=== PATIENT | female | born 1930 | race Caucasian/White ===

== ENCOUNTER 2020-01-01 07:38 | Observation (INO) ==
[2020-01-01] MEDS ORDERED: IOPAMIDOL 100 ML BOTTLE IV ONE (07:39)
[2020-01-01] MEDS ORDERED: 0.9 % SODIUM CHLORIDE 1,000 ML IV ONE (07:44)
[2020-01-01] MEDS ORDERED: ONDANSETRON 4 MG/2 ML VIAL IV ONE ×2 (07:44→09:19)
--- NOTE | 2020-01-01 08:09 | Emergency Department Note ---
HPI General Chief complaint: Trauma Stated complaint: trauma Time Seen by Provider: 01/01/20 07:41 Source: patient Mode of arrival: ambulatory Limitations: no limitations History of Present Illness HPI Narrative: Narrative: I was called for this multisystem trauma code by nursing staff. I arrived while EMS was loading her onto a gurney 89-year-old female tripped in her yard this morning hitting her face-she fell over some blocks in her patio accidentally. she did not lose consciousness but she is on Plavix. She was calling out for help and her neighbors called EMS. Her left eye is swollen shut and there is a large hematoma on her cheek now. She is having trouble opening her jaws as well. Her head and neck hurt. Her left arm hurts including her shoulder and elbow. Her right knee hurts as well. Denies shortness of breath or recent illness. Afebrile Related Data Home Medications Medication Instructions Recorded Confirmed albuterol sulfate [Proair 90 mcg IH QIDP PRN 12/21/17 12/21/17 Respiclick] amlodipine 2.5 mg PO DAILY 12/21/17 12/21/17 aspirin [Aruna Chewable Aspirin] 81 mg PO DAILY 12/21/17 12/21/17 carvedilol [Coreg] 6.25 mg PO BID 12/21/17 12/21/17 clopidogrel [Plavix] 75 mg PO DAILY 12/21/17 12/21/17 gabapentin 900 mg PO DAILY 12/21/17 12/21/17 levothyroxine 75 mcg PO DAILY 12/21/17 12/21/17 losartan 25 mg PO DAILY 12/21/17 12/21/17 Previous Rx's Medication Instructions Recorded cephalexin 500 mg PO BID #14 cap 12/21/17 phenazopyridine 100 mg PO Q12 PRN #10 tab 12/21/17 Allergies Allergy/AdvReac Type Severity Reaction Status Date / Time JOHNATHAN Inhibitors Allergy Verified 01/01/20 07:42 alendronate sodium Allergy Verified 01/01/20 07:42 [From Fosamax] atenolol Allergy Verified 01/01/20 07:42 atorvastatin [From Lipitor] Allergy Verified 01/01/20 07:42 Candesartan [From Atacand] Allergy Verified 01/01/20 07:42 chlorhexidine Allergy Verified 01/01/20 07:42 fish derived Allergy Swelling Verified 01/01/20 07:43 of Lip/Tongue/Throat lansoprazole [From Prevacid] Allergy Verified 01/01/20 07:42 lisinopril Allergy Verified 01/01/20 07:42 lovastatin Allergy Verified 01/01/20 07:42 meperidine [From Demerol] Allergy Verified 01/01/20 07:42 metoprolol [From Toprol XL] Allergy Verified 01/01/20 07:42 niacin Allergy Verified 01/01/20 07:42 rosuvastatin [From Crestor] Allergy Verified 01/01/20 07:42 Sulfa (Sulfonamide Allergy Verified 01/01/20 07:42 Antibiotics) Review of Systems ROS ROS Narrative: Narrative: All systems ED: reviewed and negative except as stated. [facility] Narrative Patient History Narrative: Narrative: Medical/Surgical/Family History All Active Problems (Updated 01/01/20 @ 08:15 by Alexandr Roberto MD) Fall (Acute) Antiplatelet or antithrombotic long-term use (Acute) Traumatic hematoma of face (Acute) Coronary artery disease (Acute) Hypertension (Acute) Hypothyroidism (Acute) Urinary tract infection (Acute) Surgical History (Updated 01/01/20 @ 08:47 by Alexandr Roberto MD) History of appendectomy (Acute) History of hysterectomy (Acute) History of percutaneous transluminal coronary angioplasty (Acute) Hx of CABG (Acute) Social History Smoking Status: Never smoker Exam Narrative Narrative: Primary survey shows intact airway breathing circulation. I do not see any significant hemorrhage besides the hematoma at her left cheek Secondary survey shows : left face shows large hematoma approximately 5 cm at the zygomatic process. She is having trouble opening her jaw because of this. However she can talk it just hurts. Left eye is swollen shut. I was able to pry open her I did take a look at the conjunctiva and pupil and that appears normal. Right eye has normal pupil and conjunctiva. Extraocular movements are intact. Heart is regular rate and rhythm no murmur appreciated. Lungs are clear to auscultation bilaterally without wheezes rales rhonchi or respiratory distress. I did palpate her left arm shoulder elbow and wrist. Her shoulder is the tenderest. She is holding it close to her body with the right hand. Abdomen is soft nontender nondistended. Right knee has tenderness over the patella as well. No pedal edema. She is alert General Limitations: no limitations Course Vital Signs Vital signs: Vital Signs Temperature 97.6 F 01/01/20 07:38 Pulse Rate 70 01/01/20 07:38 Respiratory Rate 18 01/01/20 07:38 Blood Pressure 216/76 01/01/20 07:38 Pulse Oximetry (%) 97 01/01/20 07:38 Temperature 97.6 F 01/01/20 07:38 Pulse Rate 70 01/01/20 07:38 Respiratory Rate 18 01/01/20 07:38 Blood Pressure 216/76 01/01/20 07:38 Pulse Oximetry (%) 97 01/01/20 07:38 MDM MDM Narrative Medical decision making narrative: Ordered CT scan of the head face and neck. X-rays ordered of the left shoulder elbow wrist and the right knee. Routine labs along with some IV fluids ordered. EKG and monitoring CT scan of the head neck does show degenerative changes/chronic changes. CT scan of the face however shows left orbital floor blowout fracture and zygomatic fracture She was given some Dilaudid for pain. EKG is pending as are labs. Case will be turned over to Dr. Lopez at shift change for further care and evaluation, disposition Radiology Data Radiology results reviewed: Yes I reviewed the patient's radiology results. Radiology results narrative: CT scan of the cervical spine only revealed degenerative changes. 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 However this is chronic and stable CT scan of the facial bones shows zygomatic fracture and orbital floor blowout fracture with possible entrapment of the inferior rectus muscle Discharge Plan Patient/Caregiver Discharge Instructions Pt seen by INFANT NANNY/PA only: No Clinical Impression: Antiplatelet or antithrombotic long-term use Fall Qualifiers: Encounter type: initial encounter Qualified Code(s): W19.XXXA - Unspecified fall, initial encounter Traumatic hematoma of face Qualifiers: Encounter type: initial encounter Qualified Code(s): S00.83XA - Contusion of other part of head, initial encounter Patient Disposition: Still a Patient Condition: Fair Follow up with: Chris Galvez MD [Primary Care Provider] - Prescriptions: No Action carvedilol [Coreg] 6.25 MG Tablet 6.25 mg PO BID RF: 0 clopidogrel [Plavix] 75 MG Tablet 75 mg PO DAILY RF: 0 amlodipine 5 MG Tablet 2.5 mg PO DAILY RF: 0 levothyroxine 75 MCG Tablet 75 mcg PO DAILY RF: 0 losartan 25 MG Tablet 25 mg PO DAILY RF: 0 gabapentin 300 MG Capsule 900 mg PO DAILY RF: 0 aspirin [Aruna Chewable Aspirin] 81 MG Tab.Chew 81 mg PO DAILY RF: 0 albuterol sulfate [ProAir RespiClick] 90 MCG Aer.Pow.Ba 90 mcg IH QIDP PRN (Reason: Bronchodilation) RF: 0 cephalexin 500 MG capsule 500 mg PO BID Qty: 14 RF: 0 phenazopyridine 100 MG tablet 100 mg PO Q12 PRN (Reason: Pain) Qty: 10 RF: 0
--- NOTE | 2020-01-01 08:25 | Cat Scan Report ---
INDICATION: fall COMPARISON: Previous examination dated 11/04/2019 TECHNIQUE: Axial noncontrast-enhanced images through the brain. Sagittally and coronally reformatted images. FINDINGS: Cerebral hemispheres:Negative. No intra-axial abnormality. No intra-axial hematoma. No localized mass effect. Brain volume is within normal limits. No hydrocephalus. There is white matter abnormality consistent with small vessel ischemic change in this 89-year-old patient Brainstem and cerebellum:No intra-axial abnormality Extra-axial:No acute hemorrhage. No subdural or epidural hematoma. No subarachnoid hemorrhage. Basilar cisterns are normal Calvarial:No calvarial fracture. No lytic lesion. No temporal bone fracture There is a large osseous abnormality involving the right parietal bone, greater wing of the sphenoid bone, and squamosal portion of the right temporal bone. This is exophytic and sclerotic with nonossified center. This is unchanged since 11/04/2019. There is no chondroid matrix. Appearance is not consistent with malignancy. 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 Stable since previous examination. There is abnormality involving the greater wing of the left sphenoid bone and squamosal portion of the temporal bone consistent with fibrous dysplasia or Paget's disease. Soft tissue, orbits, sinuses:There is soft tissue abnormality and there are fractures. These will be described in a separate dictation IMPRESSION: 1. No acute intracranial abnormality. Facial bone fractures will be described in a separate dictation. 2. 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 Findings are unchanged since 11/04/2019 The exam was performed using radiation dose optimization techniques including, but not limited to, automated exposure control, adjustment of the mA and/or kV according to patient size and use of iterative reconstruction technique. Interpreted and Authenticated by: Mumtaz Cervantes 01/01/20
--- NOTE | 2020-01-01 08:29 | Cat Scan Report ---
INDICATION: fall. on plavix COMPARISON: None. TECHNIQUE: Axial thin section images through the cervical spine. Sagittally and coronally reformatted images. The exam was performed using radiation dose optimization techniques including, but not limited to, automated exposure control, adjustment of the mA and/or kV according to patient size and use of iterative reconstruction technique. FINDINGS: Vertebral bodies, spinous processes:No vertebral body or spinous process fracture. No acute abnormality. Alignment is anatomic without anterolisthesis Normal odontoid process. No fracture. Occipital condyles and C1 are negative. No atlantoaxial subluxation. Facets:Multilevel degenerative facet arthropathy Disc spaces:Mild degenerative disc narrowing at C3-4, C4-5, C6-7. Moderate to severe degenerative disc disease at C5-6 Temporal bones:Negative. No basilar skull fracture Cervical soft tissues:Negative. No prevertebral soft tissue swelling. No focal soft tissue mass or acute abnormality. There is calcified atherosclerotic plaque distal common carotid arteries and proximal internal carotid arteries. Lung apices:No pneumothorax. No pulmonary contusion. IMPRESSION: 1. Degenerative disc disease and facet arthropathy 2. No cervical spine fracture Interpreted and Authenticated by: Mumtaz Cervantes 01/01/20
--- NOTE | 2020-01-01 08:37 | Cat Scan Report ---
INDICATION: fall. on plavix TECHNIQUE: Axial images through the facial bones. Sagittal and coronal reformatted images. COMPARISON: None. FINDINGS: Nasal bones:Negative. No fracture Orbits, zygoma, maxilla: Fracture of the left zygomatic arch. Fractures of the left inferior orbital rim and orbital floor. Lateral wall of the left maxillary sinus is fractured. Subtle fracture of the anterior wall of the left maxillary sinus. Findings are consistent with zygomaticomaxillary complex fracture. There is hemorrhage within the left maxillary sinus. There is extensive periorbital soft tissue swelling and soft tissue gas. There is left intraorbital gas. This is extraconal. Lamina papyracea is normal without medial blowout fracture. There is possible entrapment of the left inferior rectus muscle. There is left proptosis. The globe appears intact without evidence of disruption. Mandible:No mandibular fracture. The condyles are intact and in normal position with respect to the temporomandibular fossae Skull base:Negative temporal bones. Mastoid sinuses are negative. Middle ears are clear. No basilar skull fracture. There is osseous abnormality of the temporal and sphenoid bones consistent with fibrous dysplasia or Paget's disease. No acute posttraumatic abnormality Facial soft tissues: Extensive left periorbital soft tissue swelling and soft tissue gas. No prevertebral soft tissue swelling. Right-sided soft tissues are negative. Nasopharynx, oropharynx, hypopharynx are negative IMPRESSION: 1. Extensive left periorbital soft tissue swelling and soft tissue gas 2. Left proptosis. Left globe appears normal 3. Severe left ZMC fracture 4. Left orbital floor fracture with possible entrapment of the inferior rectus muscle The exam was performed using radiation dose optimization techniques including, but not limited to, automated exposure control, adjustment of the mA and/or kV according to patient size and use of iterative reconstruction technique. Interpreted and Authenticated by: Mumtaz Cervantes 01/01/20
[2020-01-01] MEDS ORDERED: HYDROmorphone 0.5 MG/0.5 ML SYRINGE IV PRN (08:45)
--- NOTE | 2020-01-01 08:52 | XRay Report ---
INDICATION: fall TECHNIQUE: AP internal and external rotation, Y view COMPARISON: None. FINDINGS: No left shoulder fracture. No glenohumeral dislocation. Scapula and clavicle are negative. Humeral head is normal. IMPRESSION: Negative left shoulder Interpreted and Authenticated by: Mumtaz Cervantes 01/01/20
--- NOTE | 2020-01-01 08:53 | XRay Report ---
INDICATION: fall TECHNIQUE: AP, oblique, lateral views COMPARISON: Previous examination dated 02/05/2018 FINDINGS: Skeletal: Negative. Distal femur, proximal tibia, proximal fibula are negative. No fracture. No significant osteochondral lesion. Joint spaces: Mild degenerative joint disease in the right patellofemoral joint. Medial and lateral femoral tibial joint spaces are within normal limits Suprapatellar recess, periarticular soft tissues: No detectable joint effusion. No periarticular soft tissue abnormality IMPRESSION: Negative right knee. No right knee fracture Interpreted and Authenticated by: Mumtaz Cervantes 01/01/20
--- NOTE | 2020-01-01 08:54 | XRay Report ---
INDICATION: fall. on plavix TECHNIQUE: AP and lateral left elbow COMPARISON: None. FINDINGS: Negative left elbow. No fracture. No plain film evidence for hemarthrosis. No soft tissue gas or radiopaque foreign body IMPRESSION: Negative left elbow Interpreted and Authenticated by: Mumtaz Cervantes 01/01/20
--- NOTE | 2020-01-01 08:55 | XRay Report ---
INDICATION: fall TECHNIQUE: AP and lateral left wrist COMPARISON: None. FINDINGS: Comminuted intra-articular distal left radial fracture. There is significant impaction displacement. There is slight dorsal angulation. Associated fracture of the ulnar styloid process. IMPRESSION: 1. Comminuted intra-articular distal left radial fracture with impaction and slight dorsal angulation 2. Ulnar styloid fracture Interpreted and Authenticated by: Mumtaz Cervantes 01/01/20
[2020-01-01 09:05] LABS: POC Blood Urea Nitrogen 8 mg/dl (8-23); POC CO2 25 mmol/L (22-30); POC Calcium, Ionized 1.03 mmol/L (1.16-1.32); POC Chloride 98 mmol/L (96-108); POC Creatinine 0.7 mg/dl (0.6-1.1); POC Glucose, Random 99 mg/dL (70-105); POC Potassium 3.7 mmol/L (3.3-5.1); POC Sodium 134 mmol/L (133-145)
[2020-01-01] MEDS ORDERED: ONDANSETRON 4 MG/2 ML VIAL ONE (09:21)
[2020-01-01] MEDS ORDERED: PROMETHAZINE 25 MG/ML VIAL IV ONE (09:43)
[2020-01-01 09:47] LABS: Basophils # (Auto) 0.05 K/mcL (0.00-0.30); Basophils % (Auto) 0.6 % (0.0-2.0); Eosinophils # (Auto) 0.23 K/mcL (0.00-0.70); Eosinophils % (Auto) 2.6 % (0.0-7.0); Granulocytes % (Auto) 65.6 % (38.0-78.0); Hematocrit 42.1 % (34.1-44.9); Hemoglobin 13.9 g/dL (11.2-15.7); Lymphocytes # (Auto) 1.59 K/mcL (1.50-4.80); Lymphocytes % (Auto) 17.9 % (15.5-49.0); Mean Cell Volume 82.5 fL (80.0-100.0); Mean Platelet Volume 9.1 fL (7.4-10.4); Monocytes # (Auto) 1.18 K/mcL (0.10-0.90); Monocytes % (Auto) 13.3 % (1.0-12.0); Platelet Count 288 K/mcL (140-440); Red Cell Distribution Width 14.1 % (11.5-14.5); WBC 8.9 K/mcL (4.50-11.00)
--- NOTE | 2020-01-01 09:51 | Emergency Department Note ---
HPI General Chief complaint: Trauma Stated complaint: trauma Time Seen by Provider: 01/01/20 07:41 Source: patient Mode of arrival: ambulatory Limitations: no limitations History of Present Illness HPI Narrative: Narrative: 89-year-old female tripped in her yard hitting her face-she fell over some blocks in her patio accidentally. Mechanism of injury was ground-level mechanical. Time of injury was earlier this morning. Patient currently reporting injuries to the left eye,cheek, jaw, head and neck, left arm shoulder and elbow, right knee hurts as well. . Patient is currently on blood thinners. There was not loss of consciousness. Patient's past medical history is significant for pretension, coronary artery disease, anticoagulation. Patient last ate at dinner last night. Patient with allergies to see extensive list, anticoagulated on Plavix. She was calling out for help and her neighbors called EMS. Related Data Home Medications Medication Instructions Recorded Confirmed amlodipine 2.5 mg PO DAILY 12/21/17 12/21/17 carvedilol [Coreg] 6.25 mg PO BID 12/21/17 12/21/17 clopidogrel [Plavix] 75 mg PO DAILY 12/21/17 12/21/17 gabapentin 900 mg PO DAILY 12/21/17 12/21/17 levothyroxine 75 mcg PO DAILY 12/21/17 12/21/17 losartan 25 mg PO DAILY 12/21/17 12/21/17 albuterol sulfate [Ventolin HFA] 2 puff INHALATION Q4H 01/01/20 01/01/20 hydroxyzine HCl 25 mg PO QHS 01/01/20 01/01/20 prednisone 5 mg PO BID 01/01/20 01/01/20 Allergies Allergy/AdvReac Type Severity Reaction Status Date / Time JOHNATHAN Inhibitors Allergy Verified 01/01/20 07:42 alendronate sodium Allergy Verified 01/01/20 07:42 [From Fosamax] atenolol Allergy Verified 01/01/20 07:42 atorvastatin [From Lipitor] Allergy Verified 01/01/20 07:42 Candesartan [From Atacand] Allergy Verified 01/01/20 07:42 chlorhexidine Allergy Verified 01/01/20 07:42 fish derived Allergy Swelling Verified 01/01/20 07:43 of Lip/Tongue/Throat lansoprazole [From Prevacid] Allergy Verified 01/01/20 07:42 lisinopril Allergy Verified 01/01/20 07:42 lovastatin Allergy Verified 01/01/20 07:42 meperidine [From Demerol] Allergy Verified 01/01/20 07:42 metoprolol [From Toprol XL] Allergy Verified 01/01/20 07:42 niacin Allergy Verified 01/01/20 07:42 rosuvastatin [From Crestor] Allergy Verified 01/01/20 07:42 Sulfa (Sulfonamide Allergy Verified 01/01/20 07:42 Antibiotics) Review of Systems ROS ROS Narrative: Narrative: All systems ED: reviewed and negative except as stated. [facility] Narrative Patient History Narrative: Narrative: Medical/Surgical/Family History All Active Problems (Updated 01/01/20 @ 15:24 by Clayton Lopez MD) Fracture of wrist (Acute) Zygomatic fracture, left side, initial encounter for closed fracture (Acute) Orbital floor (blow-out) closed fracture (Acute) Fall (Acute) Antiplatelet or antithrombotic long-term use (Acute) Traumatic hematoma of face (Acute) Coronary artery disease (Acute) Hypertension (Acute) Hypothyroidism (Acute) Urinary tract infection (Acute) Surgical History (Updated 01/01/20 @ 08:47 by Alexandr Roberto MD) History of appendectomy (Acute) History of hysterectomy (Acute) History of percutaneous transluminal coronary angioplasty (Acute) Hx of CABG (Acute) Social History Smoking Status: Never smoker Exam Narrative Narrative: Narrative: Primary survey: Airway: Patient without visible external evidence of airway compromise patient with trauma to the orbit as well as difficulty with jaw mobility Breathing: pt with spontaneous respirations, with excellent oxygenation on initial evaluation Circulation: Patient without obvious external hemorrhage in need of acute control, patient is perfusing extremities well without evidence of shock Disability: Basic neurological examination reveals moving all extremities, mentating appropriately; GCS 15 Secondary survey: General: Alert, interactive, appropriate Head: significant oral maxillofacial trauma Eyes: Left eye with significant edema swelling unable to open her unable to mobilize her eye to visualize and see what is going on inside of there, right eye with extraocular movements intact, sclera anicteric, no conjunctival injection Ears: Pinnae normal, no discharge Mouth: Oral mucosa moist, no acute swelling or evidence of infection Nares: No nasal discharge, patent bilaterally Neck: Trachea midline, full range of motion Chest: Symmetrical chest wall rise, clear to auscultation bilateral without wheezes rales crackles or rubs Cardiovascular: Patient with excellent perfusion to the extremities, regular rate and rhythm without M/R/G; patient is not tachycardic or hypotensive when I assumed care Abdomen: Nontender nondistended normoactive bowel sounds no masses no hepatosple nomegaly no rebound no guarding Skin: Patient without area of erythema, patient is without rash, no ascending lymphangitis or lymphadenopathy Extremities: Painful range of motion especially at the left shoulder elbow, on my evaluation patient is reporting some left hip pain, patient intact neurovas cularly to all extremities moving all extremities without abnormality Neuro: Alert, oriented x3, cranial nerves II through XII grossly intact, patient without lateralizing findings such as weakness, or abnormal reflexes Psychiatric: Normal affect, normal mood General Limitations: no limitations Course Vital Signs Vital signs: Vital Signs Temperature 97.6 F 01/01/20 07:38 Pulse Rate 70 01/01/20 07:38 Respiratory Rate 18 01/01/20 07:38 Blood Pressure 216/76 01/01/20 07:38 Pulse Oximetry (%) 97 01/01/20 07:38 Temperature 97.6 F 01/01/20 14:57 Pulse Rate 73 01/01/20 14:57 Respiratory Rate 16 01/01/20 14:57 Blood Pressure 133/56 01/01/20 14:57 Pulse Oximetry (%) 93 01/01/20 14:57 [facility] MDM Narrative Medical decision making narrative: Narrative: Focus of initial assessment was hemodynamic stability, however this was frequently reassessed during stay in the emergency department as this is a highly dynamic aspect of trauma. Focus was on injuries to the head chest abdomen and pelvis primarily with additional concerns for extremity injury taking care to avoid distracting injuries. Despite patient appearing well we assumed there were potential severe injuries that we need to identify. Pain managed primarily with fentanyl once I assumed care, patient did receive some Dilaudid prior, patient also received Zofran x2 and I did give Phenergan 12.5 mg IV. In this patient's case the following injuries were identified orbital fracture, zygoma fracture, left distal radius and ulnar styloid fracture; patient is neurovascularly intact distal to injuries unable to evaluate her eye itself secondary to swelling and edema around the injury. With persistent ongoing pain despite these interventions as well as doses of fentanyl. Discussed the case w [facility] ophthalmology who will consult once patient is admitted, also discussed with orthopedic surgery and they will consult as well. Discussed the case with the hospitalist and consensus medical opinion is to admit for pain control as well as trauma observation watch. Lab Data Result diagrams: 01/01/20 08:50 Labs: Lab Results 01/01/20 01/01/20 01/01/20 Range/Units 08:50 08:50 08:50 WBC 8.9 (4.50-11.00) K/mcL RBC 5.10 (3.59-5.38) M/mcL Hgb 13.9 (11.2-15.7) g/dL Hct 42.1 (34.1-44.9) % POC Hct 45.0 (36.0-48.0) % MCV 82.5 (80.0-100.0) fL MCH 27.3 (26.0-34.0) pg MCHC 33.0 (31.0-36.0) g/dL RDW 14.1 (11.5-14.5) % Plt Count 288 (140-440) K/mcL MPV 9.1 (7.4-10.4) fL Gran % 65.6 (38.0-78.0) % Lymph % (Auto) 17.9 (15.5-49.0) % Jenkins % (Auto) 13.3 H (1.0-12.0) % Eos % (Auto) 2.6 (0.0-7.0) % Baso % (Auto) 0.6 (0.0-2.0) % Gran # 5.82 (1.80-8.00) K/mcL Lymph # (Auto) 1.59 (1.50-4.80) K/mcL [place] # (Auto) 1.18 H (0.10-0.90) K/mcL Eos # (Auto) 0.23 (0.00-0.70) K/mcL Baso # (Auto) 0.05 (0.00-0.30) K/mcL PT 12.3 (11.9-14.5) sec INR 0.9 (0.9-1.1) POC Sodium 134 (133-145) mmol/L POC Potassium 3.7 (3.3-5.1) mmol/L POC Chloride 98 (96-108) mmol/L POC Total CO2 25 (22-30) mmol/L POC BUN 8 (8-23) mg/dl POC Creatinine 0.7 (0.6-1.1) mg/dl POC Glucose 99 (70-105) mg/dL POC WB Ioniz Calcium 1.03 L (1.16-1.32) mmol/L Urine Color Urine Appearance Urine pH (5.0-9.0) Ur Specific [place] (1.000-1.035) Urine Protein (NEG) mg/dL Urine Glucose (UA) (NEG) mg/dL Urine Ketones (NEG) mg/dL Urine Occult Blood (<0.03) mg/dL Urine Nitrate (NEG) Urine Bilirubin (NEG) mg/dL Urine Urobilinogen (NEG) mg/dL Ur Leukocyte Esterase (NEG) /uL Ur Culture Indicated? 01/01/20 Range/Units 09:20 WBC (4.50-11.00) K/mcL RBC (3.59-5.38) M/mcL Hgb (11.2-15.7) g/dL Hct (34.1-44.9) % POC Hct (36.0-48.0) % MCV (80.0-100.0) fL MCH (26.0-34.0) pg MCHC (31.0-36.0) g/dL RDW (11.5-14.5) % Plt Count (140-440) K/mcL MPV (7.4-10.4) fL Gran % (38.0-78.0) % Lymph % (Auto) (15.5-49.0) % Jenkins % (Auto) (1.0-12.0) % Eos % (Auto) (0.0-7.0) % Baso % (Auto) (0.0-2.0) % Gran # (1.80-8.00) K/mcL Lymph # (Auto) (1.50-4.80) K/mcL Jenkins # (Auto) (0.10-0.90) K/mcL Eos # (Auto) (0.00-0.70) K/mcL Baso # (Auto) (0.00-0.30) K/mcL PT (11.9-14.5) sec INR (0.9-1.1) POC Sodium (133-145) mmol/L POC Potassium (3.3-5.1) mmol/L POC Chloride (96-108) mmol/L POC Total CO2 (22-30) mmol/L POC BUN (8-23) mg/dl POC Creatinine (0.6-1.1) mg/dl POC Glucose (70-105) mg/dL POC WB Ioniz Calcium (1.16-1.32) mmol/L Urine Color Straw Urine Appearance Clear Urine pH 8.0 (5.0-9.0) Ur Specific [place] 1.006 (1.000-1.035) Urine Protein Neg (NEG) mg/dL Urine Glucose (UA) Negative (NEG) mg/dL Urine Ketones Neg (NEG) mg/dL Urine Occult Blood Neg (<0.03) mg/dL Urine Nitrate Neg (NEG) Urine Bilirubin Neg (NEG) mg/dL Urine Urobilinogen Neg (NEG) mg/dL Ur Leukocyte Esterase Neg (NEG) /uL Ur Culture Indicated? No Discharge Plan Patient/Caregiver Discharge Instructions Pt seen by SALES [employer]ANCH MANAGER/PA only: No Clinical Impression: Fall, Antiplatelet or antithrombotic long-term use, Traumatic hematoma of face, Fracture of wrist, Zygomatic fracture, left side, initial encounter for closed fracture, Orbital floor (blow-out) closed fracture Patient Disposition: Xfer As Outpt/Obs ([facility]) Condition: Fair Discharge Date/Time: 01/01/20 14:30
[2020-01-01 09:58] LABS: INR 0.9 (0.9-1.1); Prothrombin Time 12.3 sec (11.9-14.5)
[2020-01-01] MEDS: fentaNYL 100 MCG/2 ML VIAL IV PRN ×2 (10:00→14:56)
[2020-01-01 10:32] LABS: Appearance,Urine CLEAR; Bilirubin,Urine NEG (NEG); Color,Urine STRAW; Culture Indicated,Urine NO; Glucose,Urine (UA) NEGATIVE (NEG); Ketones,Urine NEG (NEG); Leukocyte Esterase,Urine NEG /uL (NEG); Nitrate,Urine NEG (NEG); Protein,Urine NEG (NEG); Specific Gravity,Urine 1.006 (1.000-1.035); Urine Blood NEG mg/dL (<0.03); Urobilinogen,Urine NEG (NEG)
[2020-01-01] MEDS ORDERED: ACETAMINOPHEN 1,000 MG/100 ML BOTTLE IV ONE (11:15)
--- NOTE | 2020-01-01 11:16 | Cat Scan Report ---
INDICATION: trauma COMPARISON: None. TECHNIQUE: Axial images were obtained through the chest,abdomen and pelvis. Sagittally and coronally reformatted images. 70ml Isovue 370 injected intravenously. Oral contrast material was not administered FINDINGS: Chest CT: Lungs:No focal pulmonary parenchymal contusion or focal infiltrates. No calcified or noncalcified pulmonary parenchymal nodule. There is no honeycombing. No interlobular septal thickening. No significant central lobular or paraseptal emphysema Mediastinum:No pathologic mediastinal adenopathy. No hilar mass. Thoracic aorta is normal without aneurysmal dilatation. No mediastinal hematoma. There is a small hiatal hernia Heart:No significant cardiomegaly. No pericardial effusion. Severe calcified coronary artery disease. Previous coronary artery bypass procedure Pleura:No hemothorax or pneumothorax. Axilla, supraclavicular regions, chest wall:No pathologic axillary or supraclavicular adenopathy. No chest wall hematoma Musculoskeletal:No thoracic compression fractures. Previous median sternotomy. No rib fracture. Clavicles and scapula are negative Abdomen/Pelvis: Liver:Negative liver. No focal intrahepatic mass. Liver contour is smooth. There is no ascites. No hepatic injury. No perihepatic hemorrhage Gallbladder, bilary:No calcified gallstones. No gallbladder wall thickening or pericholecystic fluid. No dilated bile ducts Spleen:No splenomegaly. No focal intrasplenic abnormality. Normal enhancement of splenic and portal veins. No splenic laceration. No perisplenic hemorrhage Pancreas:No pancreatic mass. No peripancreatic abnormality Adrenal glands:Negative Kidneys, ureters, bladder:No solid or cystic renal mass. No hydronephrosis. No pelvic injury. No perinephric hemorrhage No hydroureter. No ureteral stones Bladder is grossly negative. No bladder calculi Gastrointestinal:No detectable colonic mass. There is no diverticulitis. Small bowel is negative. No mechanical small bowel obstruction. Stomach and duodenum are within normal limits Appendix: The appendix is Vascular:Severe calcified atherosclerotic plaque. There is no significant abdominal aortic aneurysm. There is calcified plaque at the origins of the celiac trunk and superior mesenteric artery. Celiac stenosis is possible. There is calcified plaque in the common iliac arteries and external iliac arteries. 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 No intra-abdominal abscess. No pneumoperitoneum or hemoperitoneum Reproductive:Uterus appears atrophic. No adnexal mass Musculoskeletal:No compression fractures. Lumbar transverse processes are negative. No lytic lesions. Sacrum, pelvis, hips are negative. No inguinal or abdominal wall hernia. No soft tissue hematoma IMPRESSION: 1. Severe atherosclerotic disease 2. No acute posttraumatic abnormality The exam was performed using radiation dose optimization techniques including, but not limited to, automated exposure control, adjustment of the mA and/or kV according to patient size and use of iterative reconstruction technique. Interpreted and Authenticated by: Mumtaz Cervantes 01/01/20
--- NOTE | 2020-01-01 13:22 | Internal Med History&Physical ---
HPI History of Present Illness Patient information: Note initiated : 01/01/20 at 1:15 pm Service Date, if different from initiated Date: [] Patient: Viv Blair a 89 y/o F admitted on for Trauma. Chief Complaint: [] History of present illness: Ms. Blair is a 89 year old F who tripped on a block outside her house fell on the concrete onto her right face and wrist. Immediate pain. EMS was called. Patient brought to the ED. Valuation in the ED revealed a right wrist fracture. She also had extensive periorbital soft tissue swelling and gas and severe left zygomatic arch fracture as well as left inferior orbital rim and orbital floor. And lateral wall of the left maxillary sinus. Dr. Duffy for orthopedic was contacted from the ED as well as Dr. Ross, shampoo person. No immediate needs for fractures and the shampoo person with the patient the morning as well as Dr. Duffy. Vital signs are stable. Also note patient is on prednisone 5 mg daily for a rash and she is been on this for a year. Additionally she cut back on her home Coreg because she felt lightheaded and stopped taking the morning dose. Patient denies any headache nausea vomiting shortness of breath. Review of Systems: Positive as above. Denies headache/fever/chills/nausea/vomiting/chest or abdominal pain/cough/dyspnea/diarrhea. Many 10 point review of system reviewed negative PFSH PFSH Surgical History (Updated 01/01/20 @ 08:47 by Alexadnr Roberto MD) History of appendectomy (Acute) History of hysterectomy (Acute) History of percutaneous transluminal coronary angioplasty (Acute) Hx of CABG (Acute) Social History (Updated 01/01/20 @ 13:18 by Tanner Shea DO) smoking status: Never smoker additional history: Past medical history: CAD with CABG quadruple bypass Hypertension Hypothyroidism Neuropathy Family history: Mother had heart disease Father had COPD Social history: Patient denies tobacco or alcohol and ambulates with a cane and lives by herself. MEDS/ALLERGIES Home Medications and Allergies Home Medications Medication Instructions Recorded Confirmed Type amlodipine 2.5 mg PO DAILY 12/21/17 01/01/20 History carvedilol [Coreg] 6.25 mg PO BID 12/21/17 01/01/20 History clopidogrel [Plavix] 75 mg PO DAILY 12/21/17 01/01/20 History gabapentin 900 mg PO DAILY 12/21/17 01/01/20 History levothyroxine 75 mcg PO DAILY 12/21/17 01/01/20 History losartan 25 mg PO DAILY 12/21/17 01/01/20 History albuterol sulfate [Ventolin HFA] 2 puff INHALATION Q4H 01/01/20 01/01/20 History hydroxyzine HCl 25 mg PO QHS 01/01/20 01/01/20 History prednisone 5 mg PO BID 01/01/20 01/01/20 History Allergies Allergy/AdvReac Type Severity Reaction Status Date / Time JOHNATHAN Inhibitors Allergy Verified 01/01/20 07:42 alendronate sodium Allergy Verified 01/01/20 07:42 [From Fosamax] atenolol Allergy Verified 01/01/20 07:42 atorvastatin [From Lipitor] Allergy Verified 01/01/20 07:42 Candesartan [From Atacand] Allergy Verified 01/01/20 07:42 chlorhexidine Allergy Verified 01/01/20 07:42 fish derived Allergy Swelling Verified 01/01/20 07:43 of Lip/Tongue/Throat lansoprazole [From Prevacid] Allergy Verified 01/01/20 07:42 lisinopril Allergy Verified 01/01/20 07:42 lovastatin Allergy Verified 01/01/20 07:42 meperidine [From Demerol] Allergy Verified 01/01/20 07:42 metoprolol [From Toprol XL] Allergy Verified 01/01/20 07:42 niacin Allergy Verified 01/01/20 07:42 rosuvastatin [From Crestor] Allergy Verified 01/01/20 07:42 Sulfa (Sulfonamide Allergy Verified 01/01/20 07:42 Antibiotics) EXAM Constitutional Vitals: Temp Pulse Resp BP Pulse Ox 97.6 F 68 14 127/63 96 01/01/20 07:38 01/01/20 13:01 01/01/20 13:01 01/01/20 13:01 01/01/20 13:01 Exam: General: Alert, Awake, No acute Distress Eyes/N/T: Moist mucous membranes, left periorbital edema ecchymosis and hematoma Head/Neck: neck supple, normocephalic atraumatic CV: RRR, 2/6 SM, normal s1/s2 Pulm: Clear b/l, no wheezing/rhonchi/rales Abd: soft, nontender, +BS x4 Ext: no clubbing/cyanosis/edema. Left wrist splint in place Neuro: Alert, no focal deficits, moves all extremities, sensations intact b/l upper/lower Skin: warm/dry DATA Data Completed and Pending Labs on day of discharge: Labs from last 24 hours 01/01/20 01/01/20 01/01/20 09:20 08:50 08:50 WBC RBC Hgb Hct POC Hct 45.0 MCV MCH MCHC RDW Plt Count MPV Gran % Lymph % (Auto) [place] % (Auto) Eos % (Auto) Baso % (Auto) Gran # Lymph # (Auto) [place] # (Auto) Eos # (Auto) Baso # (Auto) PT 12.3 INR 0.9 POC Sodium 134 POC Potassium 3.7 POC Chloride 98 POC Total CO2 25 POC BUN 8 POC Creatinine 0.7 POC Glucose 99 POC WB Ioniz Calcium 1.03 L Urine Color Straw Urine Appearance Clear Urine pH 8.0 Ur Specific [place] 1.006 Urine Protein Neg Urine Glucose (UA) Negative Urine Ketones Neg Urine Occult Blood Neg Urine Nitrate Neg Urine Bilirubin Neg Urine Urobilinogen Neg Ur Leukocyte Esterase Neg Ur Culture Indicated? No 01/01/20 08:50 WBC 8.9 RBC 5.10 Hgb 13.9 Hct 42.1 POC Hct MCV 82.5 MCH 27.3 MCHC 33.0 RDW 14.1 Plt Count 288 MPV 9.1 Gran % 65.6 Lymph % (Auto) 17.9 [place] % (Auto) 13.3 H Eos % (Auto) 2.6 Baso % (Auto) 0.6 Gran # 5.82 Lymph # (Auto) 1.59 [place] # (Auto) 1.18 H Eos # (Auto) 0.23 Baso # (Auto) 0.05 PT INR POC Sodium POC Potassium POC Chloride POC Total CO2 POC BUN POC Creatinine POC Glucose POC WB Ioniz Calcium Urine Color Urine Appearance Urine pH Ur Specific [place] Urine Protein Urine Glucose (UA) Urine Ketones Urine Occult Blood Urine Nitrate Urine Bilirubin Urine Urobilinogen Ur Leukocyte Esterase Ur Culture Indicated? A/P Narrative A/P Narrative: A: *Left facial fracture (zygoma, orbit, maxillary sinus): Ground-level fall from trip *Left wrist fracture: *HTN: Recently stop morning dose of Coreg because of low blood pressure *Hypothyroidism: *Chronic prednisone use for a rash: 5 mg daily *CAD w/CABG in distant past: on ASA/Plavix *Neuropathy: On gabapentin P: -Dr. Andrews to see pt -Dr. Duffy to see pt -pain control, cold packs first 48hrs -cont home BP meds -cont home prednisone -hold ASA/Plavix for now given patient with hematoma and trauma -empiric abx given orbital fracture into sinus -elevate head of bed -PT/OT -ppx: SCDs (hold chemical given facial hematoma and trauma) Time Spent With Patient Time: Total time spent is greater than 50% in coordination of care (as documented) at patient's floor/unit and/or counseling patient:
[2020-01-01] MEDS ORDERED: POTASSIUM CHLORIDE 40 MEQ in DEXTROSE 5% IN WATER 500 ML IV PRN (14:40)
[2020-01-01] MEDS ORDERED: PROCHLORPERAZINE 10 MG/2 ML VIAL IV PRN (14:40)
[2020-01-01] MEDS ORDERED: MAGNESIUM SULFATE 2 GM/50 ML BAG IV PRN (14:40)
[2020-01-01] MEDS ORDERED: ALBUTEROL SULFATE 200 PUFF INHALER INH PRN (14:40)
[2020-01-01] MEDS ORDERED: SENNOSIDES 1 TABLET PO PRN (14:40)
[2020-01-01] MEDS ORDERED: POLYETHYLENE GLYCOL 3350 17 GM PACKET PO PRN (14:40)
[2020-01-01] MEDS ORDERED: POTASSIUM CHLORIDE 20 MEQ TABLET PO PRN ×2 (14:40)
[2020-01-01] MEDS ORDERED: IPRATROPIUM/ALBUTEROL 3 ML AMPUL.NEB NEB PRN (14:40)
[2020-01-01] MEDS ORDERED: ACETAMINOPHEN 325 MG TABLET PO PRN (14:40)
[2020-01-01] MEDS: 0.9 % SODIUM CHLORIDE 10 ML SYRINGE IV SCH ×2 (15:47→20:32)
[2020-01-01] MEDS: ONDANSETRON 4 MG/2 ML VIAL IV PRN (16:34)
[2020-01-01] MEDS: predniSONE 5 MG TABLET PO SCH (16:35)
[2020-01-01] MEDS: CARVEDILOL 6.25 MG TABLET PO SCH (16:35)
[2020-01-01] MEDS: AMOXICILLIN PT SCH (20:31)
[2020-01-01] MEDS: CLAVULANATE PT SCH (20:31)
[2020-01-01] MEDS: DOCUSATE SODIUM 100 MG CAPSULE PO SCH (20:32)
[2020-01-02] MEDS: 0.9 % SODIUM CHLORIDE 10 ML SYRINGE IV SCH ×3 (04:19→20:45)
[2020-01-02] MEDS: HYDROcodone/APAP 5/325MG TABLET PO PRN ×5 (05:53→23:58)
[2020-01-02] MEDS: ONDANSETRON 4 MG/2 ML VIAL IV PRN (05:53)
[2020-01-02 06:34] LABS: Basophils # (Auto) 0.03 K/mcL (0.00-0.30); Basophils % (Auto) 0.4 % (0.0-2.0); Eosinophils # (Auto) 0.08 K/mcL (0.00-0.70); Hemoglobin 11.5 g/dL (11.2-15.7); Lymphocytes # (Auto) 0.95 K/mcL (1.50-4.80); Lymphocytes % (Auto) 11.8 % (15.5-49.0); Mean Cell Volume 84.1 fL (80.0-100.0); Mean Corpuscular HGB Conc 31.9 g/dL (31.0-36.0); Mean Platelet Volume 9.3 fL (7.4-10.4); Monocytes # (Auto) 1.11 K/mcL (0.10-0.90); Monocytes % (Auto) 13.8 % (1.0-12.0); Platelet Count 262 K/mcL (140-440); RBC 4.28 M/mcL (3.59-5.38); Red Cell Distribution Width 14.4 % (11.5-14.5)
[2020-01-02 07:04] LABS: ALT/SGPT 6 U/l (0-40); AST/SGOT 14 U/l (0-37); Albumin 3.5 gm/dL (3.2-5.2); Albumin/Globulin Ratio 1.8 (1.0-2.3); Alkaline Phosphatase 74 U/L (39-117); Bilirubin,Direct < 0.2 mg/dL (0.0-0.3); Bilirubin,Total 0.4 mg/dL (0.0-1.0); Blood Urea Nitrogen 8 mg/dl (8-23); Calcium 7.9 mg/dl (8.6-10.4); Carbon Dioxide 22 mmol/L (22-30); Chloride 101 mmol/L (96-108); Globulin 1.9 gm/dL (2.2-3.7); Glomerular Filtration Rate 77; Glucose 97 mg/dL (70-105); Lactate Dehydrogenase 159 U/L (94-250); Phosphorous 3.4 mg/dL (2.7-4.5); Triglycerides 137 mg/dl (<150); Uric Acid 3.1 mg/dL (2.5-8.0)
--- NOTE | 2020-01-02 07:39 | Internal Med Progress Note ---
SUBJECTIVE Subjective Patient information: Note initiated : 01/02/20 at 7:37 am Service Date, if different from initiated Date: [] Patient: Viv Blair a 89 y/o F admitted on 01/01/20 for Trauma. Chief Complaint: [] Interval history: History of present illness: Ms. Blair is a 89 year old F who tripped on a block outside her house fell on the concrete onto her right face and wrist. Immediate pain. EMS was called. Patient brought to the ED. Valuation in the ED revealed a right wrist fracture. She also had extensive periorbital soft tissue swelling and gas and severe left zygomatic arch fracture as well as left inferior orbital rim and orbital floor. And lateral wall of the left maxillary sinus. Dr. Duffy for orthopedic was contacted from the ED as well as Dr. Ross, gym instructor. No immediate needs for fractures and the gym instructor with the patient the morning as well as Dr. Duffy. Vital signs are stable. Also note patient is on prednisone 5 mg daily for a rash and she is been on this for a year. Additionally she cut back on her home Coreg because she felt lightheaded and stopped taking the morning dose. Patient denies any headache nausea vomiting shortness of breath. 01/01 Slept okay. No new complaints overnight events. Review of Systems: denies headache/fever/chills/nausea/vomiting/chest or abdominal pain/cough/dyspnea/diarrhea. Otherwise see above. Constitutional Vitals: Vital Signs Temp Pulse Resp BP Pulse Ox 98.9 F 70 18 129/55 94 01/02/20 06:50 01/02/20 06:50 01/02/20 06:50 01/02/20 06:50 01/02/20 06:50 Period Temp Pulse Resp BP Sys/River Pulse Ox Last 24 Hr 97.6 F-99.8 F 66-78 12-25 127-216/55-93 86-100 Intake and Output 01/01/20 01/02/20 01/02/20 21:59 05:59 13:59 Intake Total 1100 200 Output Total 650 Balance 1100 -450 Weight 69.4 kg Intake & Output: Intake & Output 01/01/20 01/02/20 01/02/20 21:59 05:59 13:59 Intake Total 1100 200 Output Total 650 Balance 1100 -450 Weight 69.4 kg Intake: IV 1100 Sodium Chloride 0.9% 1,000 ml @ 1000 Wide Open IV BOLUS ONE Rx#: [id number] Oral 200 Output: Urine Catheter Amount 650 Other: Urine Color Bright Yellow Dark Yellow Urine Odor Normal Exam: General: Alert, Awake, No acute Distress Eyes/N/T: Moist mucous membranes, left periorbital edema ecchymosis and hematoma Head/Neck: neck supple, normocephalic atraumatic CV: RRR, 2/6 SM, Pulm: Clear b/l, no wheezing/rhonchi/rales Abd: soft, nontender, +BS x4 Ext: no clubbing/cyanosis/edema. Left wrist splint in place Neuro: Alert, no focal deficits, moves all extremities, sensations intact b/l upper/lower Skin: warm/dry OBJ DATA Labs CBC & Chem 7: 01/02/20 05:14 01/02/20 05:14 Labs: Abnormal Lab Results 01/02/20 01/02/20 01/01/20 05:14 05:14 08:50 Lymph % (Auto) 11.8 L Greer % (Auto) 13.8 H Lymph # (Auto) 0.95 L Greer # (Auto) 1.11 H Calcium 7.9 L POC WB Ioniz Calcium 1.03 L Total Protein 5.4 L Globulin 1.9 L 01/01/20 08:50 Lymph % (Auto) Greer % (Auto) 13.3 H Lymph # (Auto) Greer # (Auto) 1.18 H Calcium POC WB Ioniz Calcium Total Protein Globulin Meds: Medications Acetaminophen (Tylenol) 650 mg PO Q6HP PRN PRN Reason: PAIN/FEVER > 101 Last Admin: 01/01/20 23:52 Dose: 650 mg Documented by: Hydrocodone Bitart/Acetaminophen (Taylor 5/325mg) 1 tab PO Q4HP PRN PRN Reason: PAIN LEVEL 3-6 Last Admin: 01/02/20 05:53 Dose: 1 tab Documented by: Albuterol Sulfate (Ventolin) 2 puff INH Q4HP PRN PRN Reason: Shortness Of Breath Albuterol/Ipratropium (Duoneb) 3 ml NEB Q4HP PRN PRN Reason: Shortness Of Breath Amlodipine Besylate (Norvasc) 2.5 mg PO DAILY ISMA Amoxicillin/Clavulanate Potassium (Augmentin) 800 mg PT BID [facility]; Protocol Last Admin: 01/01/20 20:31 Dose: 800 mg Documented by: [facility]) [facility] Last Admin: 01/01/20 16:35 Dose: 6.25 mg Documented by: Docusate Sodium (Colace) 100 mg PO BID [facility] Last Admin: 01/01/20 20:32 Dose: 100 mg Documented by: Gabapentin (Neurontin) 900 mg PO DAILY [facility] Potassium Chloride 40 meq/ (Dextrose) 520 mls @ 130 mls/hr IV UD PRN PRN Reason: Potassium < 3 Magnesium Sulfate (Magnesium Sulfate) 2 gm in 50 mls @ 50 mls/hr IV UD PRN PRN Reason: Magnesium </= 1.6 Levothyroxine Sodium (Synthroid) 75 mcg PO QAMAC [facility] Losartan Potassium (Cozaar) 25 mg PO DAILY [facility] Morphine Sulfate (Morphine) 0 mg IV Q3HP PRN PRN Reason: Pain Last Admin: 01/02/20 04:18 Dose: 2 mg Documented by: Ondansetron HCl (Zofran) 4 mg IV Q4HP PRN PRN Reason: Nausea And Vomiting Last Admin: 01/02/20 05:53 Dose: 4 mg Documented by: Polyethylene Glycol (Miralax) 17 gm PO DAILYP PRN PRN Reason: Constipation Potassium Chloride (Kdur) 40 meq PO UD PRN PRN Reason: Potssium is 3-3.5 Potassium Chloride (Kdur) 40 meq PO UD PRN PRN Reason: Potassium < 3 Prednisone (Prednisone) [facility] Last Admin: 01/01/20 16:35 Dose: 5 mg Documented by: Prochlorperazine (Compazine) 10 mg IV Q6HP PRN PRN Reason: Nausea And Vomiting Senna (Senokot) 2 tab PO DAILYP PRN PRN Reason: Constipation Sodium Chloride (Saline Flush) 10 ml IV Q8 [facility] Last Admin: 01/02/20 04:19 Dose: 10 ml Documented by: A/P Narrative A/P Narrative: A: *Left facial fracture (zygoma, orbit, maxillary sinus): Ground-level fall from trip *Left wrist fracture: *HTN: Recently stopped morning dose of Coreg because of low blood pressure *Hypothyroidism: *Chronic prednisone use for a rash: 5 mg daily *CAD w/CABG in distant past: on ASA/Plavix *Neuropathy: On gabapentin P: -Dr. Andrews to see pt -Dr. Duffy to see pt -pain control, cold packs first 48hrs -cont home BP meds -cont home prednisone -hold ASA/Plavix for now given patient with hematoma and trauma -empiric abx given orbital fracture into sinus -elevate head of bed -PT/OT -ppx: SCDs (hold chemical given facial hematoma and trauma) Time Spent With Patient Time: Total time spent is greater than 50% in coordination of care (as documented) at patient's floor/unit and/or counseling patient: QUALITY Stroke Symptom Onset Unknown: No VTE Deep Vein Thrombosis/Pulmonary Embolism Present on Admission: No
[2020-01-02] MEDS: CARVEDILOL 6.25 MG TABLET PO SCH ×2 (07:57→16:58)
[2020-01-02] MEDS: predniSONE 5 MG TABLET PO SCH ×3 (07:57→17:01)
[2020-01-02] MEDS: LEVOTHYROXINE 75 MCG TABLET PO SCH (07:57)
[2020-01-02] MEDS ORDERED: amLODIPine 5 MG TABLET PO SCH ×2 (09:00→21:00)
[2020-01-02] MEDS ORDERED: GABAPENTIN 300 MG CAPSULE PO SCH ×2 (09:00→21:00)
[2020-01-02] MEDS ORDERED: LOSARTAN 25 MG TABLET PO SCH (09:00)
--- NOTE | 2020-01-02 10:24 | Discharge Summary ---
Discharge Provider Provider Patient information: Note initiated : 01/02/20 at 10:22 am Service Date, if different from initiated Date: [] Patient: Viv Blair 89 y/o F admitted on 01/01/20 for Trauma. Chief Complaint: [] Date of admission: 01/01/20 14:30 Discharge date: 01/03/20 Primary care physician: Chris Galvez Consults: 01/01/20 Consult to Physician [CONS] Stat Comment: Consulting Provider: Brian Ross Reason For Exam: Physician to Consult Consult to Physician [CONS] Stat Comment: Consulting Provider: Tanner Shea Reason For Exam: Physician to Consult 01/02/20 07:38 Consult to Physician [CONS] Routine Comment: Consulting Provider: Mumtaz Duffy Reason For Exam: Physician to Consult Discharge Meds Discharge Medications Home Medications amlodipine 5 mg PO HS 12/21/17 [History Confirmed 01/02/20 Last Taken 12/31/19] carvedilol [Coreg] 6.25 mg PO BID 12/21/17 [History Confirmed 01/01/20 Last Taken 12/31/19] clopidogrel [Plavix] 75 mg PO DAILY 12/21/17 [History Confirmed 01/01/20 Last Taken 12/31/19] gabapentin 900 mg PO HS 12/21/17 [History Confirmed 01/02/20 Last Taken 12/31/19] levothyroxine 75 mcg PO DAILY 12/21/17 [History Confirmed 01/01/20 Last Taken 12/31/19] losartan 25 mg PO BID 12/21/17 [History Confirmed 01/02/20 Last Taken 12/31/19] albuterol sulfate [Ventolin HFA] 2 puff INHALATION Q4H 01/01/20 [History Confirmed 01/01/20 Last Taken 12/31/19] hydroxyzine HCl 25 mg PO QHS 01/01/20 [History Confirmed 01/01/20 Last Taken 12/31/19] prednisone 5 mg PO BID 01/01/20 [History Confirmed 01/01/20 Last Taken 12/31/19] hydrocodone-acetaminophen 1 tab PO Q4HP PRN #20 tab 01/02/20 [Rx Last Taken Unknown] omeprazole magnesium [Prilosec OTC] 20 mg PO QDAY 01/02/20 [History Confirmed 01/02/20 Last Taken Unknown] COURSE Hospital Course Hospital course: Interval history: History of present illness: Ms. Blair is a 89 year old F who tripped on a block outside her house fell on the concrete onto her right face and wrist. Immediate pain. EMS was called. Patient brought to the ED. Valuation in the ED revealed a right wrist fracture. She also had extensive periorbital soft tissue swelling and gas and severe left zygomatic arch fracture as well as left inferior orbital rim and orbital floor. And lateral wall of the left maxillary sinus. Dr. Duffy for orthopedic was contacted from the ED as well as Dr. Ross, borematic machine operator. No immediate needs for fractures and the borematic machine operator with the patient the morning as well as Dr. Duffy. Vital signs are stable. Also note patient is on prednisone 5 mg daily for a rash and she is been on this for a year. Additionally she cut back on her home Coreg because she felt lightheaded and stopped taking the morning dose. Patient denies any headache nausea vomiting shortness of breath. 01/01 Slept okay. No new complaints overnight events. 01/02 Patient doing well. No overnight events. Seen by borematic machine operator. Patient will have referral to see ENT and then follow-up outpatient with borematic machine operator. Swelling is improved. A: *Left facial fracture (zygoma, orbit, maxillary sinus): Ground-level fall from trip *Left wrist fracture: *HTN: Recently stopped morning dose of Coreg because of low blood pressure *Hypothyroidism: *Chronic prednisone use for a rash: 5 mg daily *CAD w/CABG in distant past: on ASA/Plavix *Neuropathy: On gabapentin Discharge diagnosis: Left facial fractures left wrist fracture Time Spent with Patient Time attestation: Total time spent providing and/or coordinating discharge services: Time spent: Greater than 30 minutes EXAM Constitutional Vitals: Temp Pulse Resp BP Pulse Ox 98.9 F 70 18 129/55 94 01/02/20 06:50 01/02/20 06:50 01/02/20 06:50 01/02/20 06:50 01/02/20 06:50 Discharge Data Data Completed and Pending Labs on day of discharge: Labs from last 24 hours 01/02/20 01/02/20 01/01/20 05:14 05:14 09:20 WBC 8.0 RBC 4.28 Hgb 11.5 Hct 36.0 MCV 84.1 MCH 26.9 MCHC 31.9 RDW 14.4 Plt Count 262 MPV 9.3 Gran % 73.0 Lymph % (Auto) 11.8 L Foster % (Auto) 13.8 H Eos % (Auto) 1.0 Baso % (Auto) 0.4 Gran # 5.87 Lymph # (Auto) 0.95 L Foster # (Auto) 1.11 H Eos # (Auto) 0.08 Baso # (Auto) 0.03 Sodium 133 Potassium 4.0 Chloride 101 Carbon Dioxide 22 Anion Gap 10.0 BUN 8 Creatinine 0.7 GFR Calculation 77 Glucose 97 Uric Acid 3.1 Calcium 7.9 L Phosphorus 3.4 Magnesium 2.2 Total Bilirubin 0.4 Direct Bilirubin < 0.2 GGT 12 AST 14 ALT 6 Alkaline Phosphatase 74 Lactate Dehydrogenase 159 Total Protein 5.4 L Albumin 3.5 Globulin 1.9 L Albumin/Globulin Ratio 1.8 Triglycerides 137 Urine Color Straw Urine Appearance Clear Urine pH 8.0 Ur Specific Reeders 1.006 Urine Protein Neg Urine Glucose (UA) Negative Urine Ketones Neg Urine Occult Blood Neg Urine Nitrate Neg Urine Bilirubin Neg Urine Urobilinogen Neg Ur Leukocyte Esterase Neg Ur Culture Indicated? No Discharge Plan Patient/Caregiver Discharge Instructions Activity: increase activity as tolerated Diet: Cardiac Prescriptions: New hydrocodone-acetaminophen 5-325 mg Tablet 1 tab PO Q4HP PRN (Reason: Pain Level 3-6) Qty: 20 RF: 0 Continued carvedilol [Coreg] 6.25 MG tablet 6.25 mg PO BID RF: 0 clopidogrel [Plavix] 75 MG tablet 75 mg PO DAILY RF: 0 amlodipine 5 MG tablet 5 mg PO HS RF: 0 levothyroxine 75 MCG tablet 75 mcg PO DAILY RF: 0 losartan 25 MG tablet 25 mg PO BID RF: 0 gabapentin 300 MG capsule 900 mg PO HS RF: 0 albuterol sulfate [Ventolin HFA] 90 mcg/actuation Hfa Aerosol Inhaler 2 puff INHALATION Q4H RF: 0 prednisone 5 mg Tablet 5 mg PO BID RF: 0 hydroxyzine HCl 25 mg Tablet 25 mg PO QHS RF: 0 omeprazole magnesium [Prilosec OTC] 20 mg Tablet,Delayed Release (Dr/Ec) 20 mg PO QDAY RF: 0 Follow Up Plan Follow up with: Ted Martin MD [Physician] - (Follow up in office on Friday) Mumtaz Duffy MD [Physician] - (Follow up w/ ERIKA the ) Chris Galvez MD [Primary Care Provider] - Rosalba Yepez DO [Physician] - (Follow up ) Patient Disposition: Home, Self-Care Prognosis: Fair Rehab Potential: Fair Discharge Orders: Discharge Order (Routine); Ordered 01/03/20 [facility] Thrombosis/Pulmonary Embolism Present on Admission: No
[2020-01-02] MEDS: CLAVULANATE PT SCH ×2 (10:56→20:44)
[2020-01-02] MEDS: AMOXICILLIN PT SCH ×2 (10:56→20:44)
[2020-01-02] MEDS: DOCUSATE SODIUM 100 MG CAPSULE PO SCH ×2 (10:57→20:45)
--- NOTE | 2020-01-02 20:16 | History and Physical Report ---
DATE OF ADMISSION: 01/01/2020 HISTORY OF PRESENT ILLNESS: The patient is an 89-year-old female, who tripped and fell onto the concrete and presented to the emergency room yesterday, 01/01/2020, and was found to have an orbital fracture as well as a left wrist fracture. She was admitted for observation and Orthopedics was consulted. She locates the pain in her left wrist, but denies any numbness, tingling, elbow pain, finger pain, hand pain, shoulder pain, chest pain, shortness of breath, or any other acute symptoms. PAST MEDICAL HISTORY: The patient has a history of a bypass of her heart. ALLERGIES: JOHNATHAN INHIBITORS, ALENDRONATE, ATENOLOL, ATORVASTATIN, CANDESARTAN, CHLORHEXIDINE, LANSOPRAZOLE, LISINOPRIL, LOVASTATIN, MEPERIDINE, METOPROLOL, NIACIN, ROSUVASTATIN, SULFA. ACTIVE HOME MEDICATIONS: Albuterol sulfate, amlodipine, carvedilol, clopidogrel, gabapentin, hydrocodone, hydroxyzine, levothyroxine, losartan, omeprazole, and prednisone. REVIEW OF SYSTEMS: A 10-point systems was reviewed and is negative except as documented in HPI. PHYSICAL EXAMINATION: GENERAL: The patient is resting, sitting in a chair comfortably, in no acute distress. HEENT: Atraumatic, normocephalic. NECK: Soft, supple. No tenderness. CHEST: No tenderness. EXTREMITIES: Examination of the left upper extremity reveals tenderness in the left wrist with bruising in NICU and no lacerations or abrasions with a deformity of the wrist. IMAGING: X-ray of the left wrist reveals a comminuted intra-articular fracture of the left distal radius. ASSESSMENT: A closed displaced fracture of the left distal radius. PLAN: I discussed the treatment options with the patient including nonoperative versus operative treatment. At this time, she has elected to proceed with a closed reduction and casting and follow up in 1 to 2 weeks with [facility]. I explained the risk of the procedure today, and she has elected to proceed. PROCEDURE NOTE: I sterilely prepped the skin over the dorsum of the radius at the fracture site with Betadine and then performed a hematoma block with 10 mL of lidocaine and 10 mL of 0.5% Marcaine and 2% for the lidocaine. I waited about 5 minutes and returned and under fluoroscopy, reduced the fracture and splinted the patient in a sugar tong splint. Follow up with [facility] in about 1 week for x-ray and future fracture management. KT:jay Job ID: [id number] Doc ID: [id number] Yaniv Trivedi PA-C
[2020-01-02] MEDS: LOSARTAN 25 MG TABLET PO SCH (20:44)
--- NOTE | 2020-01-03 03:38 | XRay Report ---
INDICATION: Fracture. Status post closed reduction TECHNIQUE: AP, oblique, lateral left wrist COMPARISON: Prereduction examination dated 01/01/2020 FINDINGS: There is a cast in place. Intra-articular distal left radial fracture and associated ulnar styloid fracture. There is impaction of the knee and mild dorsal angulation. Alignment is essentially unchanged. IMPRESSION: Status post closed reduction left wrist fracture Interpreted and Authenticated by: Mumtaz Cervantes 01/03/20
[2020-01-03] MEDS: HYDROcodone/APAP 5/325MG TABLET PO PRN ×2 (03:50→07:51)
[2020-01-03] MEDS: 0.9 % SODIUM CHLORIDE 10 ML SYRINGE IV SCH ×3 (03:50→14:41)
[2020-01-03] MEDS: predniSONE 5 MG TABLET PO SCH ×2 (07:52→17:42)
[2020-01-03] MEDS: LEVOTHYROXINE 75 MCG TABLET PO SCH (07:52)
[2020-01-03] MEDS ORDERED: POLYVINYL ALCOHOL OPHTH DROPS 15ML BOTTLE OU PRN (09:18)
[2020-01-03] MEDS: CARVEDILOL 6.25 MG TABLET PO SCH ×2 (10:18→17:42)
[2020-01-03] MEDS: CLAVULANATE PT SCH (10:18)
[2020-01-03] MEDS: DOCUSATE SODIUM 100 MG CAPSULE PO SCH (10:18)
[2020-01-03] MEDS: AMOXICILLIN PT SCH (10:18)
[2020-01-03] MEDS ORDERED: ceFAZolin 2 GM in DEXTROSE 5% IN WATER 50 ML IV SCH (12:00)
[2020-01-03] MEDS ORDERED: ONDANSETRON 4 MG/2 ML VIAL IV ONE (12:10)
[2020-01-03] MEDS ORDERED: PROPOFOL 200 MG/20 ML VIAL IV ONE (12:10)
[2020-01-03] MEDS ORDERED: fentaNYL 100 MCG/2 ML VIAL IV ONE (12:10)
[2020-01-03] MEDS ORDERED: KETAMINE 100 MG/ML ML IV ONE (12:10)
[2020-01-03] MEDS ORDERED: ROPIVACAINE HCL/PF 30 ML VIAL IJ ONE (12:10)
[2020-01-03] MEDS ORDERED: LIDOCAINE HCL/PF 100 MG/5 ML SYRINGE IV ONE (12:10)
[2020-01-03] MEDS ORDERED: GLYCOPYRROLATE 0.2 MG/ML VIAL IV ONE (12:10)
[2020-01-03] MEDS ORDERED: ACETAMINOPHEN 1,000 MG/100 ML BOTTLE IV ONE (12:47)
[2020-01-03] MEDS ORDERED: BENZOCAINE/MENTHOL 1 LOZENGE PO PRN (12:47)
[2020-01-03] MEDS ORDERED: NALOXONE HCL 0.4 MG/ML VIAL IV PRN (12:47)
[2020-01-03] MEDS ORDERED: fentaNYL 100 MCG/2 ML VIAL IV PRN (12:47)
[2020-01-03] MEDS ORDERED: FLUMAZENIL 0.1 MG/ML ML IV PRN (12:47)
[2020-01-03] MEDS ORDERED: LACTATED RINGERS 250 ML IV PRN (12:47)
[2020-01-03] MEDS ORDERED: IPRATROPIUM/ALBUTEROL 3 ML AMPUL.NEB NEB PRN (12:47)
[2020-01-03] MEDS ORDERED: LACTATED RINGERS 1,000 ML IV SCH (13:00)
--- NOTE | 2020-01-03 13:19 | Brief Operative Note ---
Brief Operative Note Date of procedure: 01/03/20 Pre-op diagnosis: left distal radius fracture Post-op diagnosis: same Procedure: left distal radius orif Grafts/Implants: Yes Anesthesia: GETA Complications: none Surgeon: Dao Palma Rubber Ball Finisher: Douglas Rosado Estimated blood loss (cc): 20 Tourniquet Time (Minutes): 29 Specimens Removed/Pathology: none sent Condition: stable Disposition: PACU
--- NOTE | 2020-01-03 13:38 | Operative Note ---
DATE OF OPERATION: 01/03/2020 PREOPERATIVE DIAGNOSIS: An 89-year-old female with a left distal radius fracture, 2-part. POSTOPERATIVE DIAGNOSIS: An 89-year-old female with a left distal radius fracture, 2-part. PROCEDURE: Left distal radius fracture open reduction and internal fixation. SURGEON: Dao Palma MD FINISHER CARD TENDER: Douglas Rosado PA-C. This provider's expertise and technical skill were required throughout the case. The NATHANIEL assisted with preoperative coordination, intraoperative retraction, wound closure, dressing and splint application, as well as postoperative documentation and care coordination. ANESTHESIA: General LMA anesthesia. COMPLICATIONS: None. TOURNIQUET TIME: 220 pounds mmHg x 29 minutes. IMPLANTS: A Sameer volar plate and screws. DESCRIPTION OF PROCEDURE: Patient was brought to the operating room and put to sleep with general LMA anesthesia. A timeout was performed confirming the left arm as the operative site by initials, consent form and x-rays. The splint had been removed. The arm had been sterilely prepped and draped. We exsanguinated the arm and inflated the tourniquet to 220 mmHg. A volar approach was performed, taking this through the flexor carpi radialis flexor sheath and identifying the quadratus which was retracted laterally. We identified the fracture, which was reduced under direct vision. We placed a 5-hole volar plate and screws. We initially placed one nonlocking screw and one distal. This seemed to align the fracture initially and then we placed 4 additional screws in the plate for the shaft as well as 6 distal screws. This gave excellent fixation. We adjusted the screws for any intra-articular concerns. We irrigated thoroughly, closed the fascial layer with 3-0 Vicryl and 3-0 Monocryl. Sterile bandage was applied. A forearm splint was fitted and the patient tolerated this without complication. RBH:jerardo Job ID: [id number] Doc ID: [id number] Dao Palma MD
[2020-01-03] MEDS: LOSARTAN 25 MG TABLET PO SCH (14:31)
== END 2020-01-03 17:39 | disposition home or self-care (01) ==
LOC: ED 07:38 → MEDSUR 07:38 → SUATTDRO 14:30 → MEDSUR 14:30
PROVIDERS: ADMIT Internal Medicine; ATTEND Orthopaedic Surgery